=== PATIENT | male | born 1985 | race African-American/Black ===

== ENCOUNTER 2016-06-01 22:33 | Emergency (ER) | payer BC | END 2016-06-01 23:55 | disposition home or self-care (01) | LOC: CED 22:33 | DX: L02.412 Cutaneous abscess of left axilla (principal); F17.210 Nicotine dependence, cigarettes, uncomplicated; Z23 Encounter for immunization; Z88.2 Allergy status to sulfonamides | CPT/HCPCS: 87070; 87077; 87186; 87205; 90471; 90715; 96365; 99284 ==